=== PATIENT | male | born 1935 | race Asian ===

== ENCOUNTER 2017-01-26 01:58 | Emergency (ER) | payer MEDICARE ==
[~2017-01-26] VITALS: Ht 170.2 cm; Wt 79.4 kg
--- NOTE | 2017-01-26 02:00 | NUR ---
at bedside examining pt
--- NOTE | 2017-01-26 02:00 | NUR ---
PT placed in bed 2 and gowned up for evaluation
[2017-01-26 02:01] VITALS: BP 146/89; PULSE 124; RESP 24; TEMP 98.6; O2SAT 98
[2017-01-26] MEDS ORDERED: NACL 0.9% 1,000 ML IV SCH (02:01)
--- NOTE | 2017-01-26 02:05 | NUR ---
Pt BIB ambulance from home with generalized weakness x2 days, family stated that pt was not able to get up and urinated on himself twice. Pt on 4L O2, saturation 98%. With coughing and 98.6 temporal temperature. Contracted LUE. A&Ox4, denies SOB or chestpain, denies N/V/D. Skin intact. Will continue to monitor
[2017-01-26] MEDS ORDERED: PIPERACILLIN/TAZO 3.375 GM in NS 50 ML IV ONE (02:15)
[2017-01-26] MEDS ORDERED: IPRATROPIUM/ALBUTEROL SULFATE 3 ML AMPUL.NEB INH ONE (02:15)
--- NOTE | 2017-01-26 02:25 | NUR ---
RT at bedside performing breathing tx
[2017-01-26] MEDS ORDERED: MELA3TAB37 PO (02:37)
[2017-01-26] MEDS ORDERED: PIPERACILLIN/TAZOBACTAM 3.375 GM/VIAL (ZOSYN) IV ONE (02:37)
[2017-01-26] MEDS ORDERED: HYDR12.5 PO (02:38)
[2017-01-26] MEDS ORDERED: ALLO100T PO (02:41)
[2017-01-26] MEDS ORDERED: LOSA25TA3 PO (02:42)
[2017-01-26] MEDS ORDERED: ASPI81TA2 PO (02:43)
[2017-01-26] MEDS ORDERED: CARV3.1246 PO (02:43)
[2017-01-26] MEDS ORDERED: ERGO500043 PO (02:45)
[2017-01-26] MEDS ORDERED: BECL8.7A5 INH (02:46)
[2017-01-26] MEDS ORDERED: ALBU2TAB4 PO (02:49)
[2017-01-26] MEDS ORDERED: ALBU90AE IH (02:49)
[2017-01-26 02:53] LABS: ANION GAP 11 (5-15); CALCIUM 8.1 mg/dL (8.4-11.0); CHLORIDE 104 mmol/L (98-107); CREATININE 1.52 mg/dL (0.55-1.30); GLUCOSE 157 mg/dL (70-99); POTASSIUM 3.7 mmol/L (3.5-5.1); SODIUM SERUM 139 mmol/L (136-145); UREA NITROGEN, BLOOD 33 mg/dL (8-21)
[2017-01-26 02:58] LABS: ALANINE AMINOTRANSFERASE 66 U/L (12-78); ALBUMIN 3.1 g/dL (3.4-4.8); ASPARTATE AMINOTRANSFERASE 50 U/L (10-37); TOTAL BILIRUBIN 2.2 mg/dL (0.0-1.0)
[2017-01-26 03:12] LABS: WHITE BLOOD COUNT (AUTO) 10.9 K/uL (4.8-10.8)
[2017-01-26 03:13] LABS: HEMATOCRIT 39.5 % (36-54); HEMOGLOBIN 14.1 g/dL (14.0-18.0); MEAN CORPUSCULAR HEMOGLOBIN 34 pg (27-31); MEAN CORPUSCULAR HGB CONC 36 % (32-36); MEAN CORPUSCULAR VOLUME 96 fL (79.0-98.0); PLATELET COUNT (AUTO) 160 K/uL (130-430); RED BLOOD CELL COUNT(AUTO) 4.13 MIL/uL (4.2-6.2)
[2017-01-26 03:25] LABS: BILIRUBIN,URINE NEGATIVE (NEGATIVE); BLOOD, URINE 1+ (NEGATIVE); CLARITY/URINE SL HAZY (CLEAR); COLOR,URINE YELLOW (YELLOW); GLUCOSE,URINE NEGATIVE (NEGATIVE); KETONES,URINE NEGATIVE (NEGATIVE); LEUKOCYTE ESTERASE ,URINE NEGATIVE (NEGATIVE); NITRITE, URINE NEGATIVE (NEGATIVE); PH,URINE 5.5 (5.0-8.0); PROTEIN URINE 2+ (NEGATIVE)
[2017-01-26] MEDS ORDERED: methylPREDNISolone SOD SUCC/PF 62.5 MG/ML VIAL IVP ONE (03:30)
--- NOTE | 2017-01-26 03:30 | NUR ---
2L NS BOLUS IN PROGRESS, BLOOD CULT X2, LACTIC ACID X2, ZOSYN ADMINISTERED
[2017-01-26 03:40] LABS: ATYPICAL LYMPHOCYTES % 0 % (0-0); BAND % (MANUAL) 2 % (0-6); BASOPHILS % (MANUAL) 0 % (0-2); EOSINOPHILS % (MANUAL) 0 % (0-7); LYMPHOCYTES % (MANUAL) 10 % (20-46); MONOCYTES % (MANUAL) 12 % (0-11)
[2017-01-26] MEDS ORDERED: NACL 0.9% 1,000 ML IV ONE ×2 (03:45→05:30)
[2017-01-26 03:46] LABS: BACTERIA,URINE RARE /HPF (None Seen); WBC,URINE NONE SEEN /HPF (0-3)
[2017-01-26 04:27] LABS: BLOOD GAS PH 7.449 (7.350-7.450)
[2017-01-26 04:28] LABS: ABG TOTAL HEMOGLOBIN 13.2 G/dL (12.0-18.0); BLOOD GAS BASE EXCESS -1.9 mmol/L (-3.0-3.0); BLOOD O2Hb% 89.6 % (94.0-97.0)
[2017-01-26 04:29] LABS: BLOOD GAS COHb% 0.9 % (0.5-1.5)
--- NOTE | 2017-01-26 04:30 | NUR ---
Pt appeared resting comfortably in bed, VSS
[2017-01-26] MEDS ORDERED: ACETAMINOPHEN 325 MG TABLET ONE (05:15)
--- NOTE | 2017-01-26 05:15 | NUR ---
Temporal T 101, notified. 1L NS administered, 650mg tylenol PO given.
--- NOTE | 2017-01-26 06:17 | NUR ---
Patient to be transferred to [facility]. Is being transferred due to higher level of care. Receiving facility has accepting physician and available space. ER physician has signed transfer form. Patient or responsible green party has agreed to transfer and signed form. Patient belongings inventoried and will be sent with patient. Copy of nursing notes, lab reports, EKG, Physicians Orders and X-rays to be sent with patient. Report called to [phone] at receiving facility. Receiving physician is . ambulance service has been called for transfer. ETA is [id number].
[2017-01-26 07:04] VITALS: BP 110/82; PULSE 93; RESP 16; TEMP 99.1; O2SAT 98
== END 2017-01-26 07:04 | disposition short-term general hospital (02) ==
LOC: SED 01:58
DX: N17.9 Acute kidney failure, unspecified (principal); J18.1 Lobar pneumonia, unspecified organism; Z88.1 Allergy status to other antibiotic agents; Z88.8 Allergy status to other drugs, medicaments and biological substances; Z79.82 Long term (current) use of aspirin
CPT/HCPCS: 36415; 36600; 71010; 80053; 81000; 82803; 83605; 83880; 84484; 85007; 85027; 85379; 87040; 93005; 94640; 96361; 96365; 96375; 99285; J2543; J2930; J7030; J7040

== ENCOUNTER 2017-04-20 12:49 | Emergency (ER) | payer MEDICARE ==
[~2017-04-20] VITALS: Ht 172.7 cm; Wt 68.0 kg
[2017-04-20 12:49] VITALS: BP_SYST 115
[~2017-04-20 12:49] MED LIST: ALBU90AE IH; ALLO100T PO; ASPI81TA2 PO; BECL8.7A5 INH; CARV3.1246 PO; ERGO500043 PO; HYDR12.5 PO; LOSA25TA3 PO; MELA3TAB37 PO
[2017-04-20 13:42] LABS: BASOPHILS % (AUTO) 0.3 % (0.0-2.0); EOSINOPHILS % (AUTO) 0.2 % (0.0-4.0); HEMATOCRIT 41.8 % (36-54); LYMPHOCYTES # (AUTO) 1.8 K/uL (1.0-5.5); MEAN CORPUSCULAR HEMOGLOBIN 31 pg (27-31); MEAN CORPUSCULAR HGB CONC 33 % (32-36); MEAN CORPUSCULAR VOLUME 93 fL (79.0-98.0); MONOCYTES # (AUTO) 0.4 K/uL (0.0-1.0); MONOCYTES % (AUTO) 4.4 % (1.7-9.3); NEUTROPHILS # (AUTO) 6.8 K/uL (1.8-7.7); NEUTROPHILS % (AUTO) 75.1 % (40.0-70.0); PLATELET COUNT (AUTO) 220 K/uL (130-430); RED BLOOD CELL COUNT(AUTO) 4.51 MIL/uL (4.2-6.2); RED CELL DISTRIBUTION WIDTH 14.6 % (9.0-15.0)
[2017-04-20 13:49] LABS: ANION GAP 7 (5-15); CALCIUM 8.6 mg/dL (8.4-11.0); CHLORIDE 106 mmol/L (98-107); CREATININE 1.73 mg/dL (0.55-1.30); GLUCOSE 132 mg/dL (70-99); POTASSIUM 4.1 mmol/L (3.5-5.1); SODIUM SERUM 139 mmol/L (136-145); UREA NITROGEN, BLOOD 33 mg/dL (8-21)
[2017-04-20 13:54] LABS: ALANINE AMINOTRANSFERASE 27 U/L (12-78); ALBUMIN 3.5 g/dL (3.4-4.8); ASPARTATE AMINOTRANSFERASE 23 U/L (10-37); PROTHROMBIN TIME 11.1 SECS (9.5-12.5); TOTAL BILIRUBIN 1.3 mg/dL (0.0-1.0); TOTAL PROTEIN, SERUM 6.9 g/dL (6.4-8.3)
[2017-04-20 13:56] LABS: ALCOHOL, BLOOD < 3 mg/dL (<10)
[2017-04-20 13:57] LABS: ACETAMINOPHEN < 1 ug/mL (1-30)
[2017-04-20 14:02] LABS: SALICYLATE < 1 mg/dL (3-30)
[2017-04-20] MEDS ORDERED: NACL 0.9% 1,000 ML IV ONE ×2 (14:30)
[2017-04-20 14:53] LABS: BILIRUBIN,URINE NEGATIVE (NEGATIVE); BLOOD, URINE 3+ (NEGATIVE); COLOR,URINE YELLOW (YELLOW); GLUCOSE,URINE NEGATIVE (NEGATIVE); KETONES,URINE NEGATIVE (NEGATIVE); LEUKOCYTE ESTERASE ,URINE NEGATIVE (NEGATIVE); NITRITE, URINE NEGATIVE (NEGATIVE); PH,URINE 5.5 (5.0-8.0); PROTEIN URINE 2+ (NEGATIVE); UROBILINOGEN,URINE 0.2 (0.2-1.0)
[2017-04-20 14:54] LABS: CLARITY/URINE HAZY (CLEAR)
[2017-04-20 15:02] LABS: BACTERIA,URINE FEW /HPF (None Seen); MUCUS,URINE None Seen /LPF (None Seen); RBC,URINE 50-80 /HPF (0-3); WBC,URINE NONE SEEN /HPF (0-3)
[2017-04-20 15:03] LABS: BARBITURATE, URINE NEGATIVE (NEG <=200); BENZODIAZEPINE, URINE NEGATIVE (NEG <=150); CANNABINOID, URINE POSITIVE (NEG <=50); COCAINE, URINE NEGATIVE (NEG <=150); METHAMPHETAMINES SCREEN,URINE NEGATIVE (NEG <=500); OPIATE, URINE NEGATIVE (NEG <=100); PHENCYCLIDINE SCREEN,URINE NEGATIVE (NEG <=25); UR TRICYCLIC ANTIDEPRESSANTS NEGATIVE (NEG <=300); URINE AMPHETAMINE NEGATIVE (NEG <=500); URINE METHADONE NEGATIVE (NEG <=200); URINE OXYCODONE SCREEN NEGATIVE (NEG <=100); URINE PROPOXYPHENE SCREEN NEGATIVE (NEG <=300)
[2017-04-20 17:53] VITALS: BP_SYST 158
== END 2017-04-20 17:53 | disposition short-term general hospital (02) ==
LOC: SED 12:49
DX: G93.40 Encephalopathy, unspecified (principal); N28.9 Disorder of kidney and ureter, unspecified; F12.10 Cannabis abuse, uncomplicated; I10 Essential (primary) hypertension; R51 Headache; Z88.2 Allergy status to sulfonamides; Z88.5 Allergy status to narcotic agent
CPT/HCPCS: 36415; 70450; 71010; 80053; 80307; 81000; 84484; 85025; 85610; 85730; 93005; 96360; 99285; G0480; G0481; G0482; J7030